=== PATIENT | female | born 1970 | race Asian ===

== ENCOUNTER 2017-04-04 13:01 | Outpatient (CLI) | payer OTHER | END 2017-04-04 13:08 | disposition short-term general hospital (02) | LOC: AMB 13:01 | DX: S62.102A Fracture of unspecified carpal bone, left wrist, initial encounter for closed fracture (principal); W10.8XXA Fall (on) (from) other stairs and steps, initial encounter; Y92.098 Other place in other non-institutional residence as the place of occurrence of the external cause | CPT/HCPCS: A0425; A0427 ==

== ENCOUNTER 2017-04-04 13:09 | Emergency (ER) | payer OTHER ==
[~2017-04-04] VITALS: Ht 162.6 cm; Wt 54.4 kg
[2017-04-04 13:15] VITALS: TEMP 98
[2017-04-04 17:00] VITALS: BP 139/54
== END 2017-04-04 17:15 | disposition short-term general hospital (02) ==
LOC: ED 13:09
DX: S52.532A Colles' fracture of left radius, initial encounter for closed fracture (principal); W10.8XXA Fall (on) (from) other stairs and steps, initial encounter; Y92.098 Other place in other non-institutional residence as the place of occurrence of the external cause
CPT/HCPCS: 99284

== ENCOUNTER 2017-04-04 17:11 | Outpatient (CLI) | payer OTHER | END 2017-04-04 17:25 | disposition short-term general hospital (02) | LOC: AMB 17:11 | DX: S52.532A Colles' fracture of left radius, initial encounter for closed fracture (principal); W10.8XXA Fall (on) (from) other stairs and steps, initial encounter; Y92.098 Other place in other non-institutional residence as the place of occurrence of the external cause | CPT/HCPCS: A0425; A0429 ==

== ENCOUNTER 2017-05-12 03:49 | Emergency (ER) | payer OTHER ==
[~2017-05-12] VITALS: Ht 167.6 cm; Wt 52.6 kg
[2017-05-12 05:20] VITALS: BP 127/86; TEMP 98.4
== END 2017-05-12 05:22 | disposition home or self-care (01) ==
LOC: ED 03:49
DX: L30.8 Other specified dermatitis (principal)
CPT/HCPCS: 99282

== ENCOUNTER 2017-12-04 05:51 | Emergency (ER) | payer OTHER ==
[~2017-12-04] VITALS: Ht 162.6 cm; Wt 51.3 kg
[2017-12-04 06:05] VITALS: BP 150/107; TEMP 97.6
== END 2017-12-04 06:43 | disposition home or self-care (01) ==
LOC: ED 05:51
DX: H92.03 Otalgia, bilateral (principal); H61.22 Impacted cerumen, left ear
CPT/HCPCS: 99281

== ENCOUNTER 2017-12-17 14:10 | Emergency (ER) | payer OTHER ==
[~2017-12-17] VITALS: Ht 157.5 cm; Wt 68.0 kg
[2017-12-17 14:44] VITALS: BP 156/102; TEMP 98
== END 2017-12-17 16:32 | disposition home or self-care (01) ==
LOC: ED 14:10
DX: I10 Essential (primary) hypertension (principal)
CPT/HCPCS: 99281

== ENCOUNTER 2018-09-06 11:53 | Emergency (ER) | payer OTHER ==
[~2018-09-06] VITALS: Ht 157.5 cm; Wt 59.0 kg
[2018-09-06 11:55] VITALS: BP 119/60; TEMP 97.8
[2018-09-06 13:09] LABS: PLATELET COUNT 231 K/uL (152-353)
[2018-09-06 13:16] LABS: POTASSIUM 4.3 mmol/L (3.6-5.2)
[2018-09-06] MEDS ORDERED: [UNRECOGNIZED DRUG - OTHER] PO (15:55)
[2018-09-06] MEDS ORDERED: VALPROIC A250 MG/5 M PO (15:56)
[2018-09-06] MEDS ORDERED: KP FOLIC ACID1 MG PO (15:57)
[2018-09-06] MEDS ORDERED: MAGNESIUM GLUC500 M1 PO (15:58)
[2018-09-06] MEDS ORDERED: MAG-AL PLUS PO (15:58)
[2018-09-06] MEDS ORDERED: MAGNSUS68 PO (15:59)
[2018-09-06] MEDS ORDERED: NICODERM C21 MG/241 TD (16:00)
[2018-09-06] MEDS ORDERED: TYLENOL325 MG PO (16:01)
[2018-09-06] MEDS ORDERED: VITAMIN B1100 M1 PO (16:02)
[2018-09-06] MEDS ORDERED: OLANZAPINE10 M2 PO (16:03)
[2018-09-06] MEDS ORDERED: OLAN10INJ IM (16:06)
[2018-09-06] MEDS ORDERED: LORA2INJ21 INJ (16:07)
[2018-09-06] MEDS ORDERED: DOCU100C10 PO (16:11)
[2018-09-06] MEDS ORDERED: RISP2TAB2 PO (16:12)
[2018-09-06] MEDS ORDERED: DIVA500T2 PO (16:13)
== END 2018-09-06 14:57 | disposition still patient (30) ==
LOC: ED 11:53
PROVIDERS: Emergency Medicine
DX: F20.89 Other schizophrenia (principal); F23 Brief psychotic disorder
CPT/HCPCS: 36415; 80053; 80307; 80320; 80329; 81000; 85027; 93005; 99285

== ENCOUNTER 2019-07-26 15:26 | Emergency (ER) | payer OTHER ==
[~2019-07-26] VITALS: Ht 157.5 cm; Wt 56.2 kg
[~2019-07-26 15:26] MED LIST: CLON0.1T16 PO; DIVA500T2 PO; DOCU100C10 PO; KP FOLIC ACID1 MG PO; LISI10TA11 PO; LORA2INJ21 INJ; MAG-AL PLUS PO; MAGNESIUM GLUC500 M1 PO; MAGNSUS68 PO; NEOM1SUS6 OTIC; NICODERM C21 MG/241 TD; OLAN10INJ IM; OLANZAPINE10 M2 PO; OLANZAPINE10 MG PO; RISP2TAB2 PO; TYLENOL325 MG PO; VALPROIC A250 MG/5 M PO; VITAMIN B1100 M1 PO; [UNRECOGNIZED DRUG - OTHER] PO
[2019-07-26 17:00] LABS: PLATELET COUNT 202 K/uL (152-353)
[2019-07-26 17:06] LABS: POTASSIUM 4.3 mmol/L (3.6-5.2); SODIUM 128 mmol/L (136-145)
[2019-07-26 19:35] VITALS: BP 119/80; TEMP 98.4
== END 2019-07-26 19:35 | disposition home or self-care (01) ==
LOC: ED 15:26
PROVIDERS: Family Medicine
DX: N39.0 Urinary tract infection, site not specified (principal); E86.0 Dehydration; R00.0 Tachycardia, unspecified
CPT/HCPCS: 36415; 80053; 81000; 82550; 84484; 85027; 87077; 87086; 87088; 87186; 93005; 96365; 96374; 99284; J0696

== ENCOUNTER 2019-12-12 14:42 | Outpatient (CLI) | payer OTHER ==
[2019-12-12 15:19] LABS: PLATELET COUNT 250 K/uL (152-353)
[2019-12-12 15:36] LABS: POTASSIUM 4.6 mmol/L (3.6-5.2)
== END 2019-12-12 19:16 | disposition home or self-care (01) ==
LOC: LAB 14:42
PROVIDERS: Nurse Practitioner Family
DX: Z00.00 Encounter for general adult medical examination without abnormal findings (principal); I10 Essential (primary) hypertension; Z79.899 Other long term (current) drug therapy; R53.81 Other malaise; R53.83 Other fatigue
CPT/HCPCS: 80053; 80061; 83036; 84439; 84443; 85027

== ENCOUNTER 2021-03-12 08:12 | Outpatient (CLI) | payer OTHER | END 2021-03-12 19:41 | disposition home or self-care (01) | LOC: MAMMO 08:12 → RAD 09:30 → MAMMO 19:41 | PROVIDERS: ATTEND Nurse Practitioner Family | DX: Z12.31 Encounter for screening mammogram for malignant neoplasm of breast (principal); Z13.820 Encounter for screening for osteoporosis; N95.8 Other specified menopausal and perimenopausal disorders ==